=== PATIENT | female | born 1975 | race Two or more races ===

== ENCOUNTER 2021-04-07 12:16 | Emergency (ER) | payer BC, OTHER, SELFPAY ==
[~2021-04-07] VITALS: Ht 152.4 cm; Wt 68.4 kg
--- NOTE | 2021-04-07 12:39 | NUR ---
PT AMBULATED TO ROOM FROM TRIAGE. PT CO "BONE PAIN" IN HER BILATERAL KNEES, ARMS AND BACK. PT STATED THAT SHE HAS ALSO HAD SINUS PRESSURE, EAR PAIN, SORE THROAT AND "BLOODY PUS COMING OUT OF MOUTH AT NIGHT" FOR 2 MONTHS. PT ALSO STATED THAT HER LMP WAS 2/3, BUT HAS HAD NEGATIVE TESTS. PT DENIES ANY CP, SOB, FEVER OR COUGH.
[2021-04-07 13:20] VITALS: BP 154/78
--- NOTE | 2021-04-07 13:30 | NUR ---
PT RESTING IN RJENNINGS COMFORTABLY. CALL LIGHT WITHIN REACH.
--- NOTE | 2021-04-07 14:30 | NUR ---
DISCAHRGE INSTRUCTIONS REVIEWED WITH PT. ALL QUESTIONS ANSWERED AT THIS TIME.
== END 2021-04-07 14:32 | disposition home or self-care (01) ==
LOC: ED 13:45
DX: J30.2 Other seasonal allergic rhinitis (principal); Z88.0 Allergy status to penicillin
CPT/HCPCS: 99282